=== PATIENT | male | born 1985 ===

== ENCOUNTER 2024-02-25 15:42 | Inpatient (IN) | payer OTHER ==
[~2024-02-25] VITALS: Ht 177.8 cm; Wt 80.0 kg
[2024-02-25 17:36] LABS: BASOPHILS % (AUTO) 0.5 % (0.0-2.0); EOSINOPHILS % (AUTO) 3.6 % (1.0-6.0); HEMATOCRIT 46.5 % (41-53); HEMOGLOBIN 16.1 g/dL (13.5-17.5); LYMPHOCYTES # (AUTO) 1.6 K/uL (1.0-4.8); MEAN CORPUSCULAR HEMOGLOBIN 29.9 pg (26.0-34.0); MEAN CORPUSCULAR HGB CONC 34.7 G/dL (31.0-37.0); MEAN CORPUSCULAR VOLUME 86 fL (80-100); MONOCYTES # (AUTO) 0.3 K/uL (0.1-1.0); MONOCYTES % (AUTO) 7.1 % (2.0-9.0); NEUTROPHILS # (AUTO) 2.2 K/uL (1.8-7.7); NEUTROPHILS % (AUTO) 50.8 % (40.0-70.0); PLATELET COUNT (AUTO) 233 K/uL (150-450); RED BLOOD CELL COUNT(AUTO) 5.39 MIL/uL (4.50-5.90); RED CELL DISTRIBUTION WIDTH 13.3 % (11.5-14.5); WHITE BLOOD COUNT (AUTO) 4.3 K/uL (4.5-11.0)
[2024-02-25 17:42] LABS: ANION GAP 9 mmol/L (8-16); CARBON DIOXIDE 28 mmol/L (22-29); CHLORIDE 104 mmol/L (98-107); CREATININE 1.07 mg/dL (0.60-1.30); GLOMERULAR FILTR. RATE CALC > 60 mL/min (>60); GLUCOSE,RANDOM 99 mg/dL (70-110); POTASSIUM 3.8 mmol/L (3.5-5.1); SODIUM SERUM 140 mmol/L (136-145); UREA NITROGEN, BLOOD 12 mg/dL (7-18)
[2024-02-25 17:48] LABS: ALANINE AMINOTRANSFERASE 24 U/L (12-78); ALBUMIN 3.9 g/dL (3.4-5.0); ALKALINE PHOSPHATASE 52 U/L (46-116); ASPARTATE AMINOTRANSFERASE 24 U/L (15-37); BILIRUBIN,TOTAL 0.8 mg/dL (0.1-1.0); TOTAL PROTEIN, SERUM 7.8 g/dL (6.4-8.2)
[2024-02-25] MEDS ORDERED: BISACODYL 10 MG RECTAL RECTAL SUPPOSITORY PR PRN (20:30)
[2024-02-25] MEDS ORDERED: ONDANSETRON HCL 4 MG/2 ML VIAL IVP PRN (20:30)
[2024-02-25] MEDS ORDERED: MAGNESIUM HYDROXIDE SUSPENSION 30 ML UDCUP PO PRN (20:30)
[2024-02-25] MEDS ORDERED: ZOLPIDEM TARTRATE 5 MG TABLET PO PRN (20:30)
[2024-02-25] MEDS ORDERED: ALBUTEROL SULFATE 2.5 MG/0.5 ML NEB SOLUTION NEB PRN (20:30)
[2024-02-25] MEDS ORDERED: IPRATROPIUM BROMIDE 0.5 MG/2.5 ML NEB SOLUTION NEB PRN (20:30)
[2024-02-25] MEDS: KETOROLAC TROMETHAMINE 30 MG/ML VIAL IVP PRN (21:10)
[2024-02-26] VITALS (7 sets, daily range): BP systolic 108–130; BP diastolic 69–78; PULSE 61–78; RESP 16–18; TEMP 97–98.2; O2SAT 96–99
[2024-02-26] MEDS: PANTOPRAZOLE SODIUM 40 MG DR TABLET PO SCH (08:17)
[2024-02-26] MEDS: MORPHINE SULFATE 2 MG/ML SYRINGE IVP PRN (08:54)
[2024-02-26 19:08] LABS: MTB PCR w/Rif. Resistance-SPUT NOT DETECTED (Not Detectd)
[2024-02-26] MEDS: KETOROLAC TROMETHAMINE 15 MG/ML VIAL IVP PRN (19:34)
[2024-02-27 03:06] LABS: HIV 1-2 SCREEN 4TH GEN W/RFLX Non Reactive (Non Reactive)
[2024-02-27 05:59] VITALS: BP 110/60; PULSE 68; RESP 16; TEMP 97.7; O2SAT 97
[2024-02-27 07:43] LABS: MTB PCR w/Rif. Resistance-SPUT NOT DETECTED (Not Detectd)
[2024-02-27 11:29] VITALS: BP 113/76; PULSE 73; RESP 17; TEMP 98.2; O2SAT 97
[2024-02-27 18:09] VITALS: BP 115/75; PULSE 64; RESP 17; TEMP 98.2; O2SAT 98
[2024-02-27 20:47] VITALS: BP 136/77; PULSE 64; RESP 18; TEMP 98.2; O2SAT 98
[2024-02-28 05:09] VITALS: BP 122/61; PULSE 63; RESP 18; TEMP 97.9; O2SAT 98
[2024-02-28 09:06] LABS: QUANTIFERON+, Nil Value 0.05 IU/mL; QUANTIFERON+,Mitogen Value >10.00 IU/mL; QUANTIFERON+,TB1 Antigen Value 0.09 IU/mL; QUANTIFERON+,TB2 Antigen Value 0.08 IU/mL; QUANTIFERON, TB GOLD PLUS Negative (Negative)
[2024-02-28 10:05] VITALS: BP 119/67; PULSE 69; RESP 17; TEMP 98.2; O2SAT 97
[2024-02-28 18:15] VITALS: BP 124/75; PULSE 64; RESP 18; TEMP 98.3; O2SAT 96
[2024-02-28 20:00] VITALS: BP 115/64; PULSE 66; RESP 19; O2SAT 99
[2024-02-29 04:00] VITALS: BP 114/61; PULSE 67; RESP 18; O2SAT 97
[2024-02-29 08:00] VITALS: BP 121/63; PULSE 75; RESP 16; O2SAT 98
[2024-02-29 12:00] VITALS: BP 118/78; PULSE 75; RESP 18; TEMP 98.3; O2SAT 97
[2024-02-29 16:00] VITALS: BP 138/78; PULSE 70; RESP 17; TEMP 98.2; O2SAT 97
[2024-02-29 19:33] VITALS: BP 124/79; PULSE 74; RESP 19; TEMP 98.2; O2SAT 97
[2024-02-29 23:32] VITALS: BP 111/68; PULSE 66; RESP 18; TEMP 98; O2SAT 98
[2024-03-01 08:17] VITALS: BP 107/81; PULSE 67; RESP 18; TEMP 97.7; O2SAT 99
[2024-03-01 21:56] VITALS: BP 105/57; PULSE 63; RESP 20; TEMP 98.3; O2SAT 97
[2024-03-02 04:33] VITALS: BP 103/56; PULSE 64; RESP 20; TEMP 97.7; O2SAT 97
[2024-03-02 08:43] VITALS: BP 125/75; PULSE 71; RESP 18; TEMP 97.8; O2SAT 99
[2024-03-02] MEDS: PB/HYOSCY/ATR/SCOP/LIDO/MAALOX 55 ML BOTTLE PO ONE (16:46)
[2024-03-02 19:30] VITALS: BP 116/82; PULSE 67; RESP 18; TEMP 98.2; O2SAT 97
[2024-03-03 06:26] VITALS: BP 108/72; PULSE 63; RESP 18; TEMP 97.7; O2SAT 98
[2024-03-03 07:57] VITALS: BP 101/64; PULSE 69; RESP 18; TEMP 97.9; O2SAT 97
[2024-03-03 09:46] VITALS: BP 124/73; PULSE 79; RESP 18; TEMP 98.2; O2SAT 97
[2024-03-03 15:58] VITALS: BP 110/78; PULSE 75; RESP 20; TEMP 98; O2SAT 96
[2024-03-03] MEDS: PB/HYOSCY/ATR/SCOP/LIDO/MAALOX 55 ML BOTTLE PO ONE (19:26)
[2024-03-03 19:28] VITALS: BP 132/89; PULSE 70; RESP 18; TEMP 98.2; O2SAT 99
[2024-03-03] MEDS: DEXTROSE 5%-LACTATED RINGERS 1,000 ML IV ONE (21:12)
[2024-03-04 06:26] VITALS: BP 126/62; PULSE 58; RESP 18; TEMP 97.8; O2SAT 98
[2024-03-04 08:17] VITALS: BP 111/74; PULSE 59; RESP 18; TEMP 97.6; O2SAT 97
[2024-03-04 09:05] LABS: BASOPHILS % (AUTO) 0.3 % (0.0-2.0); EOSINOPHILS % (AUTO) 5.3 % (1.0-6.0); HEMATOCRIT 46.7 % (41-53); HEMOGLOBIN 15.9 g/dL (13.5-17.5); LYMPHOCYTES # (AUTO) 1.6 K/uL (1.0-4.8); LYMPHOCYTES % (AUTO) 33.1 % (22.0-44.0); MEAN CORPUSCULAR HEMOGLOBIN 29.5 pg (26.0-34.0); MEAN CORPUSCULAR HGB CONC 34.1 G/dL (31.0-37.0); MEAN CORPUSCULAR VOLUME 87 fL (80-100); MONOCYTES # (AUTO) 0.4 K/uL (0.1-1.0); MONOCYTES % (AUTO) 7.7 % (2.0-9.0); NEUTROPHILS # (AUTO) 2.5 K/uL (1.8-7.7); NEUTROPHILS % (AUTO) 53.6 % (40.0-70.0); PLATELET COUNT (AUTO) 210 K/uL (150-450); RED BLOOD CELL COUNT(AUTO) 5.38 MIL/uL (4.50-5.90); RED CELL DISTRIBUTION WIDTH 13.1 % (11.5-14.5); WHITE BLOOD COUNT (AUTO) 4.7 K/uL (4.5-11.0)
[2024-03-04 09:18] LABS: ANION GAP 9 mmol/L (8-16); CALCIUM, TOTAL 8.8 mg/dL (8.8-10.5); CARBON DIOXIDE 27 mmol/L (22-29); CHLORIDE 105 mmol/L (98-107); CREATININE 0.96 mg/dL (0.60-1.30); GLOMERULAR FILTR. RATE CALC > 60 mL/min (>60); GLUCOSE,RANDOM 95 mg/dL (70-110); POTASSIUM 4.3 mmol/L (3.5-5.1); SODIUM SERUM 141 mmol/L (136-145); UREA NITROGEN, BLOOD 15 mg/dL (7-18)
== END 2024-03-04 15:55 | DRG 392 ==
LOC: EMS 15:53 → EDH 22:03 → 5N 02-26 00:50 → 6S 02-29 13:50 → 5N 02-29 18:11 → 4E 02-29 23:20
PROVIDERS: ADMIT Hospitalist; ATTEND Hospitalist
DX: K29.70 Gastritis, unspecified, without bleeding (principal); E86.0 Dehydration; K21.9 Gastro-esophageal reflux disease without esophagitis; R05.9 Cough, unspecified; Z88.6 Allergy status to analgesic agent
CPT/HCPCS: 71045; 71250; 80048; 80053; 83735; 85025; 86480; 87015; 87206; 87389; 87556; 94640; 96374; 99285; G0378; J1885; J2270; 36415-L1; 36415-TC